=== PATIENT | male | born 1980 | race Two or more races ===

== ENCOUNTER 2023-11-09 17:33 | Emergency (ER) | payer BC, SELFPAY ==
[2023-11-09 17:33] VITALS: BP 133/79; PULSE 67; RESP 14; TEMP 36.6; O2SAT 100; BMI 27.4
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
[2023-11-09] MEDS: Diphth,Pertuss(Acell),Tet Vac 0.5 ML Vial IM (18:38)
[2023-11-09] MEDS: HYDROcodone Bitartrate/Apap 5/325 Tablet PO (19:33)
[2023-11-09 19:41] VITALS: BP 130/78; PULSE 72; RESP 16; TEMP 36.9; O2SAT 96
== END 2023-11-09 19:44 | disposition home or self-care (01) ==
PROVIDERS: Emergency Provider Emergency Medicine; Visit Provider Emergency Medicine
DX: S02.40EA Zygomatic fracture, right side, initial encounter for closed fracture (principal); S42.001A Fracture of unspecified part of right clavicle, initial encounter for closed fracture; S52.125A Nondisplaced fracture of head of left radius, initial encounter for closed fracture; S00.03XA Contusion of scalp, initial encounter; S20.411A Abrasion of right back wall of thorax, initial encounter; V18.0XXA Pedal cycle driver injured in noncollision transport accident in nontraffic accident, initial encounter; Y93.55 Activity, bike riding; Y99.8 Other external cause status; Y92.828 Other wilderness area as the place of occurrence of the external cause; Z23 Encounter for immunization
CPT/HCPCS: 70450; 71250; 72125; 73030; 73080; 90471; 90715; 99284

== ENCOUNTER → 2023-11-10 | Outpatient (CLI) | payer BC, SELFPAY ==
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
== END | disposition home or self-care (01) ==
LOC: CT 15:58
PROVIDERS: PCP Family Medicine; Referring Provider Physician Assistant Surgical; Visit Provider Physician Assistant Surgical
DX: S52.132A Displaced fracture of neck of left radius, initial encounter for closed fracture (principal)
CPT/HCPCS: 73200